=== PATIENT | female | born 1935 | race Caucasian/White ===

== ENCOUNTER 2016-03-10 04:12 | Observation (INO) | payer MEDICARE, OTHER ==
[~2016-03-10] VITALS: Ht 162.6 cm; Wt 77.1 kg
[2016-03-10] MEDS ORDERED: ATORVASTATIN CA20 MG PO (04:52)
[2016-03-10] MEDS ORDERED: ASPIRIN81 MG PO (04:53)
[2016-03-10] MEDS ORDERED: ALLERGY RELIEF180 MG PO (04:54)
[2016-03-10] MEDS ORDERED: PROAIR HFA8.5 GM INH (04:56)
[2016-03-10] MEDS ORDERED: NITROSTAT0.4 MG SL (17:58)
[2016-03-10] MEDS ORDERED: TESSALON PERLE100 M1 PO (18:01)
== END 2016-03-10 18:25 | disposition short-term general hospital (02) ==
LOC: ER 04:12 → IP 05:25 → ER 05:25 → IP 05:45 → OBS 05:45 → IP 18:25
PROVIDERS: ADMIT Family Medicine
DX: R07.9 Chest pain, unspecified (principal); J06.9 Acute upper respiratory infection, unspecified; E78.5 Hyperlipidemia, unspecified; J45.909 Unspecified asthma, uncomplicated; K21.9 Gastro-esophageal reflux disease without esophagitis; Z87.891 Personal history of nicotine dependence; Z83.3 Family history of diabetes mellitus; Z82.49 Family history of ischemic heart disease and other diseases of the circulatory system; Z80.7 Family history of other malignant neoplasms of lymphoid, hematopoietic and related tissues; Z88.5 Allergy status to narcotic agent; Z79.82 Long term (current) use of aspirin; Z79.899 Other long term (current) drug therapy; Z90.49 Acquired absence of other specified parts of digestive tract; Z90.89 Acquired absence of other organs; Z98.41 Cataract extraction status, right eye; Z98.42 Cataract extraction status, left eye; Z98.890 Other specified postprocedural states
CPT/HCPCS: A9150; G0378; J1650